=== PATIENT | male | born 1980 | race Caucasian/White ===

== ENCOUNTER 2016-11-30 04:53 | Emergency (ER) | payer OTHER ==
[2016-11-30] MEDS ORDERED: KETOROLAC TROMETHAMINE 30 MG/ML SOL IV ONE (04:55)
[2016-11-30] MEDS ORDERED: PROCHLORPERAZINE EDISYLATE 5 MG/ML SOL IV ONE (04:56)
[2016-11-30] MEDS ORDERED: DIPHENHYDRAMINE 50 MG/ML SOL IV ONE (04:56)
[2016-11-30] MEDS ORDERED: SODIUM CHLORIDE 0.9% 1000ML 1,000 ML IV SCH (05:00)
[2016-11-30] MEDS ORDERED: DIPHENHYDRAMINE 50 MG/ML SOL ONE (05:05)
[2016-11-30] MEDS ORDERED: KETOROLAC TROMETHAMINE 30 MG/ML SOL ONE (05:05)
[2016-11-30] MEDS ORDERED: PROCHLORPERAZINE EDISYLATE 5 MG/ML SOL ONE (05:05)
[2016-11-30 05:46] VITALS: RESP 16; TEMP 97.2
[2016-11-30 06:40] VITALS: O2SAT 100
[2016-11-30 06:41] VITALS: BP 128/73; PULSE 51
== END 2016-11-30 06:15 | disposition home or self-care (01) | DRG 103 ==
LOC: ED 04:53
DX: G43.909 Migraine, unspecified, not intractable, without status migrainosus (principal)
CPT/HCPCS: 99284; J0780; J1200; J1885